=== PATIENT | male | born 1935 | race Caucasian/White ===

== ENCOUNTER 2019-03-11 20:47 | Emergency (ER) | payer OTHER ==
[~2019-03-11] VITALS: Ht 162.6 cm; Wt 80.7 kg
[~2019-03-11 20:47] MED LIST: AVALIDE 300-12.1 TAB PO; CALTRATE 600600 MG PO; Coreg PO; EXELON4.5 MG PO; FLUCONAZOLE100 MG PO; FOLIC ACID1 MG PO; ISORDIL10 MG PO; LASIX20 MG PO; NEURONTIN300 MG PO; PLAVIX 75MG PO; PLAVIX75 MG PO; TAMS0.4C PO; VASOTEC 2.5MG TAB PO; ZOCOR20 MG PO
[2019-03-12] MEDS ORDERED: CIPRO500 MG PO (03:44)
[2019-03-12] MEDS ORDERED: MIRALAX510 GM PO (03:44)
== END 2019-03-12 04:14 ==
LOC: ER 20:47
DX: N28.1 Cyst of kidney, acquired (principal); R10.11 Right upper quadrant pain

== ENCOUNTER 2019-10-23 14:37 | Emergency (ER) | payer OTHER ==
[~2019-10-23] VITALS: Ht 162.6 cm; Wt 77.1 kg
[~2019-10-23 14:37] MED LIST changes: +CIPRO500 MG PO; +MIRALAX510 GM PO
== END 2019-10-23 18:43 | disposition home or self-care (01) ==
LOC: ER 14:37
DX: R05 Cough (principal); R06.02 Shortness of breath; B96.0 Mycoplasma pneumoniae [M. pneumoniae] as the cause of diseases classified elsewhere